=== PATIENT | female | born 2000 ===

== ENCOUNTER 2018-11-15 06:27 | Day surgery (SDC) | payer BC ==
[2018-11-15] VITALS (14 sets, daily range): BP systolic 90–120; BP diastolic 45–74
[~2018-11-15] VITALS: Ht 162.6 cm; Wt 64.4 kg
[~2018-11-15 06:27] MED LIST: CYMBALTA60 MG ORAL; DEPO-TESTO100 MG/1 M IM; LOESTRIN1 EACH PO; ceFAZolin sod 2 GM in D5W 55 ML IVP ONE
[2018-11-15] MEDS ORDERED: Dyna-Hex 2% Top Sol 2oz TOPIC ONE (07:31)
[2018-11-15] MEDS ORDERED: Muri-Lube ONE (07:31)
[2018-11-15] MEDS ORDERED: Bupivacaine 0.25% Inj 30ml INJ ONE (07:31)
[2018-11-15] MEDS ORDERED: Bacitracin Oint 15gm Tube TOPIC ONE (07:31)
[2018-11-15] MEDS ORDERED: Lidocaine 1% 10mg/ml/Epi 0.005mg/ml 30ml vial INJ ONE (07:32)
--- NOTE | 2018-11-15 07:38 | Anethesia Preoperative Eval ---
Anesthesia Pre-op PMH/ROS General Date of Evaluation: Nov 15, 2018 Anesthesiologist: Mihir ASA Score: ASA 2 Mallampati Score Class I : Soft palate, uvula, fauces, pillars visible Class II: Soft palate, uvula, fauces visible Class III: Soft palate, base of uvula visible Class IV: Only hard plate visible Mallampati Classification: Class II Surgeon: Paul Diagnosis: gender dysphori Surgical Procedure: bilateral breaast mastectomy with free nipple graft Anesthesia History: none Family History: no anesthesia problems Allergies: Coded Allergies: No Known Allergies (Unverified , 11/14/18) Medications: see eMAR Patient NPO?: Yes NPO Date: Nov 14, 2018 NPO Time: 22:00 Past Medical History Cardiovascular: Denies: HTN, CAD, MT, valve dz, arrhythmia, other Pulmonary: Denies: asthma, COPD, TRACIE, other Gastrointestinal/Genitourinary: Denies: GERD, CRI, ESRD, other Neurologic/Psychiatric: Reports: depression/anxiety; Denies: dementia, CVA, TIA, other Endocrine: Denies: DM, hypothyroidism, steroids, other HEENT: Denies: cataract (L), cataract (R), glaucoma, MENTASTA (L), MENTASTA (R), other Hematology/Immune: Denies: anemia, DVT, bleeding disorder, other Musculoskeletal/Integumentary: Denies: OA, RA, DJD, DDD, edema, other PSxH Narrative: denies Anesthesia Pre-op Phys. Exam Physician Exam Last Vital Signs Date Time Temp Pulse Resp B/P (MAP) Pulse Ox O2 Delivery O2 Flow Rate FiO2 11/15/18 06:59 98.2 97 18 116/69 100 Room Air Constitutional: NAD Cardiovascular: RRR Respiratory: CTA Airway Exam Mallampati Score: Class I MO: full ROM: full Teeth: intact Anesthesia Pre-op A/P Labs see chart Urine Test Test 11/15/18 06:45 Urine HCG, Qualitative Negative (NEGATIVE) Risk Assessment & Plan Assessment: ASA II Plan: GA Status Change Before Surgery: No Pre-Antibiotics Drug: Anef 1g Given Within 1 Hr of Incision: Yes Alia Rodriguez MD Nov 15, 2018 07:38
--- NOTE | 2018-11-15 08:20 | Pre-Procedure Note/Attestation ---
Pre-Procedure Note/Attestation Complete Prior to Procedure Planned Procedure: bilateral Procedure Narrative: mastectomy with nipple areola reconstruction Indications for Procedure Pre-Operative Diagnosis: gender identity disorder Attestation I attest that I discussed the nature of the procedure; its benefits; risks and complications; and alternatives (and the risks and benefits of such alternatives ), prior to the procedure, with the patient (or the patient's legal credit representative). I attest that, if there was a reasonable possibility of needing a blood transfusion, the patient (or the patient's legal credit representative) was given the [facility] standardized written summary, pursuant to the [place] Blood Safety Act ([place] Health and Safety Code # 1645, as amended). I attest that I re-evaluated the patient just prior to the surgery and that there has been no change in the patient's H&P, except as documented below: David Miller MD Nov 15, 2018 08:20
[2018-11-15] MEDS ORDERED: Sterile Water Irrig 1000ml IRRIG ONE (09:00)
[2018-11-15] MEDS ORDERED: LR 1000ml ONE (09:00)
[2018-11-15] MEDS ORDERED: NS Irrig 1000ml IRRIG ONE ×2 (09:04→09:27)
[2018-11-15] MEDS ORDERED: Midazolam 2mg/2ml Inj ONE (09:16)
[2018-11-15] MEDS ORDERED: Propofol 200mg/20ml IV ONE (09:16)
[2018-11-15] MEDS ORDERED: fentaNYL 100 mcg/2 mL IV ONE (09:16)
[2018-11-15] MEDS ORDERED: Lidocaine 1% MPF 10mg/ml 5ml ONE (09:16)
[2018-11-15] MEDS ORDERED: Zemuron 50mg/5ml Inj IV ONE (09:31)
[2018-11-15] MEDS ORDERED: Metoclopramide 10mg/2ml Inj ONE (09:42)
[2018-11-15] MEDS ORDERED: Dexamethasone 4mg/ml vial ONE (09:42)
[2018-11-15] MEDS ORDERED: Metoclopramide 10mg/2ml Inj IVP PRN (09:45)
[2018-11-15] MEDS ORDERED: Midazolam 2mg/2ml Inj IVP PRN (09:45)
[2018-11-15] MEDS ORDERED: fentaNYL 100 mcg/2 mL IV PRN (09:45)
[2018-11-15] MEDS ORDERED: LORazepam Inj 2mg/ml 1ml IV PRN (09:45)
[2018-11-15] MEDS ORDERED: LR 1000ml 1,000 ML IVLG SCH (09:45)
[2018-11-15] MEDS ORDERED: DiphenhydrAMINE 50mg/ml Inj IVP PRN (09:45)
[2018-11-15] MEDS ORDERED: Ketorolac 30mg Inj IV PRN (09:45)
[2018-11-15] MEDS ORDERED: Hydromorphone 0.5mg/0.5ml inj IVP PRN (09:45)
--- NOTE | 2018-11-15 12:48 | Discharge Instructions ---
Discharge Instructions Discharge Instructions Follow up with: Dr. Miller 11/20/18 Diet: regular Resume Normal Activity?: Yes Activity: ambulate For Surgical Patients Dressing Care: keep dry and clean May shower: No - sponge bathe only For Congestive Heart Failure Reminder Report to your physician any weight gain of 5 pounds or more in one week. David Miller MD Nov 15, 2018 12:48
--- NOTE | 2018-11-15 12:48 | Operative Note - PDOC ---
Operative Note Operative Note Date of Operation/Procedure: Nov 15, 2018 Pre-op Diagnosis: gender identity disorder Procedure: bilateral mastectomy, bilateral NAC reconstruction Post-op Diagnosis: same as pre-op Surgeon: Paul Anesthesiologist: Angel Anesthesia: general Specimen: yes - 1) right breast, 2) left breast Complications: none Condition: stable Estimated Blood Loss: minimal Drains: MINO - x2 Implant(s) used?: No David Miller MD Nov 15, 2018 12:48
[2018-11-15] MEDS ORDERED: D5 1/2NS 1,000 ML IV SCH (12:51)
[2018-11-15] MEDS ORDERED: HYDROmorphone 1mg/ml Carpuject SUBQ PRN (13:00)
[2018-11-15] MEDS ORDERED: HYDROcodone/Acetamin 5/325 tab ORAL PRN (13:00)
[2018-11-15] MEDS ORDERED: Tylenol #3 tab (300mg/30mg) ORAL PRN (13:00)
[2018-11-15] MEDS ORDERED: Succinylcholine 20mg/ml 10ml vial ONE (13:00)
--- NOTE | 2018-11-15 13:13 | Immediate Post-Op Evaluation ---
Immediate Post-Op Evalulation Immediate Post-Op Evalulation Procedure: Bilateral mastectomy with free nipple graft Date of Evaluation: Nov 15, 2018 Time of Evaluation: 12:58 IV Fluids: 1L Blood Products: 0 Estimated Blood Loss: 30 Urinary Output: 0 Blood Pressure Systolic: 94 Blood Pressure Diastolic: 55 Pulse Rate: 115 Respiratory Rate: 16 O2 Sat by Pulse Oximetry: 97 Temperature (Fahrenheit): 97.7 Pain Score (1-10): 0 Nausea: No Vomiting: No Complications 0 Patient Status: awake, reacts, patent, none Hydration Status: adequate Drug: Ancef 1g Given Within 1 Hr of Incision: Yes Alia Rodriguez MD Nov 15, 2018 13:13
--- NOTE | 2018-11-15 13:53 | Diagnostic Imaging Report ---
Indication: Cough Technique: One view of the chest Comparison: none Findings: There is bilateral interstitial and airspace disease which is diffuse but in a predominantly perihilar distribution. The pleural spaces are grossly clear. The heart size is normal. Multiple surgical drains are present. Small amount of air within the right chest wall presumably relates to recent surgery. Impression: Bilateral pulmonary edema versus infiltrates. Correlate with clinical findings. If the latter, the possibility of aspiration should also be considered
--- NOTE | 2018-11-15 18:00 | Operative Note - Dictated ---
DATE OF OPERATION: 11/15/2018 PREOPERATIVE DIAGNOSIS: Gender identity disorder. POSTOPERATIVE DIAGNOSIS: Gender identity disorder. PROCEDURE: 1. Bilateral mastectomy. 2. Bilateral nipple areola reconstruction utilizing full-thickness nipple areola grafts (each graft 2.5 x 2.5 cm). SURGEON: David Miller M.D. ANESTHESIA: General. ESTIMATED BLOOD LOSS: 20 mL. SPECIMENS: 1. Right breast. 2. Left breast. DRAINS: A 15-[place] x2. COMPLICATIONS: None. CONDITION TO RECOVERY ROOM: Stable. INDICATION FOR PROCEDURE: This is a very pleasant 18-year-old trans male who desires top surgery mastectomy as part of his transition. He has the appropriate letter of recommendation from his therapist and meets all WPATH criteria for top surgery. I have discussed the risks, benefits, and alternatives of the procedure with him including, but not limited to, bleeding, infection, scarring, nerve injury, asymmetry, contour deformity, hematoma, seroma, loss of nipple sensation, loss of nipple graft and need for additional surgery including revisions. I discussed the orientation of the incisions and the unpredictable nature of scarring. No guarantees were made regarding the outcome. All of his questions have been answered to the best of my ability. He verbalized understanding with everything that we discussed and wishes to proceed. DESCRIPTION OF PROCEDURE: The patient was identified in the preoperative holding area and marked in the standing position. He was then brought to the operating room where he was placed in the supine position on the operating room table with his arms extended on arm boards. All bony prominences were adequately padded. Sequential compression devices were placed and intravenous antibiotics were administered. After induction of anesthesia, the patient's chest was prepped and draped in sterile fashion. Starting on the left breast first, the nipple areola complex was placed on manual stretch and a alturas measuring 2.5 cm in diameter was drawn out centered around the nipple. Next, the subdermal plane within this marking was infiltrated with 3 mL of 1% lidocaine with epinephrine. I then used a 15 blade scalpel to incise the areolar marking and then proceeded to harvest a full-thickness nipple areola graft. The graft was subsequently defatted, wrapped in wet gauze, and placed on the back table. I then made the inframammary fold incision using a 10 blade scalpel and dissected down to the level of the pectoralis major fascia. I then made the superior breast incision using a 10 blade scalpel and dissected down to the level of Paula's fascia. Skin Rakes were used to retract the skin and a plane of dissection was created between the subcutaneous tissues and breast parenchyma heading in a superior direction towards the level of the clavicle. Afterwards, the breast parenchyma was then elevated off of the pectoralis major fascia proceeding from a medial to lateral direction. The specimen was passed off the table. Hemostasis was achieved and the wound was irrigated with saline. A 15-[place] drain was then placed within the wound and brought out through a separate stab incision and secured using 2-0 silk suture. Skin preston were then used to temporarily reapproximate the skin. I then shifted my attention to the contralateral breast where the identical procedure was performed. The patient was then sat up on the operating room table and it appeared that he had very reasonable symmetry between the 2 sides of his chest. I then used a marking pen to draw out the proposed location of the new nipple areola complex on each side of the chest. These markings were confirmed with direct measurements. The patient was then placed back in the supine position. On each side of the chest, the skin preston were removed and closure of the wound was performed using interrupted #0 Vicryl suture for the Paula's fascia layer followed by interrupted 3-0 PDS suture for the subdermal layer and then a running 3-0 Monocryl subcuticular suture for the skin. Next, I proceeded with the nipple areola reconstruction portion of the procedure. Starting on the left chest first, the maycol-areolar marking was incised using a 15 blade scalpel. The intervening skin between the markings was then de-epithelialized. I then brought out the full-thickness nipple areola graft and proceeded to inset it into the de-epithelialized area using a running 5-0 fast-absorbing suture. Several 2-0 silk suture ties were then placed around the periphery of the graft. The skin graft bolster was fashioned and secured into place directly over the full-thickness nipple areola graft using the 2-0 silk suture ties. I shifted my attention to the contralateral side where the identical procedure was performed. Next, 10 mL of 0.25% plain Marcaine was injected into the each of the chest incisions. Steri-Strips and sterile dressings were then applied. The patient tolerated the procedure well and was sent to the recovery room in stable condition. All instrument, sharp, and sponge counts were correct at the conclusion of the case. David Miller M.D. DR: MARGARET JOB#: [id number] CC: SANNA
== END 2018-11-15 15:05 | disposition home or self-care (01) ==
LOC: SUR 06:27
DX: F64.9 Gender identity disorder, unspecified (principal); Z79.899 Other long term (current) drug therapy
CPT/HCPCS: 19303; 19350; 71045; 81025; J0330; J0690; J1100; J1170; J1885; J1940; J2250; J2405; J2704; J2765; J3010; J3490; 94003; 94150